=== PATIENT | female | born 1960 ===

== ENCOUNTER 2017-04-20 23:43 | Emergency (ER) | payer MEDICAID ==
[2017-04-20 23:57] VITALS: BMI 44.2
[2017-04-21 00:01] VITALS: BP 136/63; PULSE 70; RESP 16; TEMP 97.6; O2SAT 97
--- NOTE | 2017-04-21 01:30 | ED PDOC ---
Arrival/HPI - General Chief Complaint: Abnormal Skin Integrity Time Seen by Provider: 04/21/17 00:13 Historian: Patient - History of Present Illness Narrative History of Present Illness (Text): 04/21/17 02:01 56 year old female presents to ED with complaints of a rash present since yesterday and denies any exposure to new foods, medicines, or soaps/lotions. Notes rash is pruritic, erythematous, and present on the anterior aspect of the neck. (-) fever, facial swelling, tongue swelling, or difficulty breathing. Patient also notes a dry cough present for 2 months. (+) nasal congestion x2 days. (-) fever, chest pain, or SOB. PCP: Dr. Wolfe Time/Duration: 24 hours Past Medical History - Provider Review Nursing Documentation Reviewed: Yes - Travel History Have you recently traveled outside [place] w/in the past 3 mons?: No - Past History Past History: Non-Contributing Family/Social History - Physician Review Nursing Documentation Reviewed: Yes Family/Social History: No Known Family HX Allergies/Home Meds Allergies/Adverse Reactions: Allergies No Known Allergies Allergy (Verified 04/20/17 23:57) Review of Systems - Patients Enrolled in [employer] [X]: A conversation was conducted with the primary medical doctor. - Physician Review All systems were reviewed & negative as marked: Yes - Review of Systems Constitutional: absent: Fevers ENT: Sinus Congestion. absent: Other ((-) tongue swelling) Respiratory: Cough (dry). absent: SOB Cardiovascular: absent: Chest Pain Musculoskeletal: absent: Other ((-) facial swelling) Skin: Rash (prurity and erythematous rash on anterior neck). absent: Normal Physical Exam Vital Signs Reviewed: Yes Vital Signs Temp Pulse Resp BP Pulse Ox 04/20/17 23:57 97.6 F 70 16 136/63 97 Appearance: Positive for: Well-Appearing Pain Distress: None Mental Status: Positive for: Alert and Oriented X 3 - Systems Exam Head: Present: Atraumatic Ears: Present: Normal Mouth: Present: Moist Mucous Membranes Pharnyx: Present: Normal Neck: Present: Normal Range of Motion Respiratory/Chest: Present: Clear to Auscultation Cardiovascular: Present: Regular Rate and Rhythm Upper Extremity: Present: Normal Inspection Lower Extremity: Present: Normal Inspection Skin: Present: Warm, Rashes (erythematous lacy appearing rash on anterior neck) , Other (patient has vitiligo). No: Normal Color Psychiatric: Present: Alert, Oriented x 3 Medical Decision Making ED Course and Treatment: 04/21/17 00:37 Initial impression: rash, likely due to contact dermatitis presents with cough x2 months. r/o PNA. likely bronchitis v viral illness Initial plan: * CXR 04/21/17 01:27 CXR : NAD, as read by PA Chest x-ray results discussed the patient in great detail. Diagnosis of contact dermatitis and cough likely due to bronchitis or viral illness discussed with the patient. Instructed to follow up with primary care physician in 1-2 days without fail. Advised to take medication as prescribed. Return to the emergency room at any time for any new or worsening symptoms. Patient states she fully agrees with and understands discharge instructions. States that she agrees with the plan and disposition. Verbalized and repeated discharge instructions and plan. I have given the patient opportunity to ask any additional questions. Scribe Attestation: Documented by Alycia Neumann acting as a scribe for Callie Sauer PA-C. MD Scribe Attestation: All medical record entries made by the Scribe were at my direction and personally dictated by me. I have reviewed the chart and agree that the record accurately reflects my personal performance of the history, physical exam, medical decision making, and the department course for this patient. I have also personally directed, reviewed, and agree with the discharge instructions and disposition. - RAD Interpretation Radiology Orders: 04/21/17 00:37 CHEST TWO VIEWS (PA/LAT) [RAD] Stat - PA / DIRECTOR OF CHILD WELFARE SERVICES / Resident Statement MD/DO has reviewed & agrees with the documentation as recorded. Disposition/Present on Arrival - Present on Arrival Any Indicators Present on Arrival: No History of DVT/PE: No History of Uncontrolled Diabetes: No Urinary Catheter: No History of Decub. Ulcer: No - Disposition Have Diagnosis and Disposition been Completed?: Yes Diagnosis: Contact dermatitis, Cough Disposition: HOME/ ROUTINE Disposition Time: 01:00 Patient Plan: Discharge Condition: STABLE Discharge Instructions (ExitCare): Contact Dermatitis (ED), Viral Syndrome (ED) Print Language: [place] Additional Instructions: Thank you for letting us take care of you today. You were treated for contact dermatitis, cough likely viral illness. The emergency medical care you received today was directed at your acute symptoms. If you were prescribed any medication , please fill it and take as directed. It may take several days for your symptoms to resolve. Return to the Emergency Department if your symptoms worsen , do not improve, or if you have any other problems. Please contact your doctor in 2 days for re-evaluation and follow up. Bring any paperwork you were given at discharge with you along with any medications you are taking to your follow up visit. Our treatment cannot replace ongoing medical care by a primary care provider (PCP) outside of the emergency department. Thank you for allowing the [facility] team to be part of your care today. If you had an X-Ray : A Radiologist will review the ED reading if any change in treatment is needed we will contact you. Prescriptions: DiphenhydrAMINE [Benadryl] 25 mg PO TID #20 cap Guaifenesin 400 mg PO QID #20 tablet Hydrocortisone Michelle 0.2% Cr [Westcort] 1 applic TOP BID #1 tube Forms: [place] ([place]), [facility] ED School/Work Excuse
--- NOTE | 2017-04-21 09:39 | RAD ---
HISTORY: cough COMPARISON: No prior. TECHNIQUE: Chest PA and lateral FINDINGS: LUNGS: No active pulmonary disease. PLEURA: No significant pleural effusion identified. No pneumothorax apparent. CARDIOVASCULAR: Atherosclerotic aortic calcifications. Cardiomediastinal silhouette unchanged OSSEOUS STRUCTURES: Unchanged. VISUALIZED UPPER ABDOMEN: Normal. OTHER FINDINGS: None. IMPRESSION: No active disease.
== END 2017-04-21 01:55 | disposition home or self-care (01) ==
LOC: H.ER 23:43
DX: L25.9 Unspecified contact dermatitis, unspecified cause (principal); B34.9 Viral infection, unspecified

== ENCOUNTER 2017-05-28 22:26 | Emergency (ER) | payer MEDICAID ==
[2017-05-28 22:26] VITALS: BMI 44.2
[2017-05-28 22:57] VITALS: BP 145/87; PULSE 74; RESP 17; TEMP 97.5; O2SAT 96
[2017-05-28 23:32] LABS: SQUAMOUS EPITHIAL < 1 /hpf (0-5); URINE BACTERIA RARE (<OCC); URINE BILIRUBIN NEGATIVE (NEGATIVE); URINE BLOOD SMALL (NEGATIVE); URINE CLARITY CLOUDY (Clear); URINE COLOR YELLOW (YELLOW); URINE GLUCOSE (UA) NEG (Normal); URINE LEUKOCYTE ESTERASE LARGE Leu/uL (Negative); URINE NITRATE NEGATIVE (NEGATIVE); URINE PROTEIN >=500 mg/dL (NEGATIVE); URINE UROBILINOGEN 0.2-1.0 mg/dL (0.2-1.0)
--- NOTE | 2017-05-28 23:34 | ED PDOC ---
HPI: Female Pain Time Seen by Provider: 05/28/17 23:06 Chief Complaint (Nursing): Female Genitourinary History Per: Patient History/Exam Limitations: no limitations Current Symptoms Are (Timing): Still Present Additional Complaint(s): 57 yo F presents with continued dysuria. Patient states that she saw her pmd at the clinic regarding her symptoms, was Dx with a UTI and given Rx for bactrim, she took the last dose today, but continues to have dysuria. Denies any fever, chills, N/V, back pain, abdominal pain. Past Medical History Vital Signs: Last Vital Signs Temp 97.5 F L 05/28/17 22:54 Pulse 74 05/28/17 22:54 Resp 17 05/28/17 22:54 BP 145/87 05/28/17 22:54 Pulse Ox 96 05/28/17 22:54 - Medical History PMH: HTN, Hyperlipidemia - Family History Family History: States: No Known Family Hx - Home Medications Home Medications: Ambulatory Orders Medication Instructions Recorded DiphenhydrAMINE [Benadryl] 25 mg PO TID #20 cap 04/21/17 Guaifenesin 400 mg PO QID #20 tablet 04/21/17 Hydrocortisone Michelle 0.2% Cr 1 applic TOP BID #1 tube 04/21/17 [Westcort] Cefpodoxime [Vantin] 200 mg PO BID #20 tab 05/28/17 - Allergies Allergies/Adverse Reactions: Allergies Allergy/AdvReac Type Severity Reaction Status Date / Time No Known Allergies Allergy Verified 04/20/17 23:57 Review of Systems Constitutional: Negative for: Fever, Chills, Weakness, Malaise Cardiovascular: Negative for: Chest Pain, Palpitations Respiratory: Negative for: Cough, Shortness of Breath Gastrointestinal: Negative for: Nausea, Vomiting, Abdominal Pain Genitourinary Female: Positive for: Dysuria. Negative for: Frequency, Incontinence Musculoskeletal: Negative for: Neck Pain Skin: Negative for: Rash Physical Exam - Physical Exam Appears: Positive for: Well, Non-toxic, No Acute Distress Skin: Positive for: Normal Color, Warm, Dry Neck: Positive for: Normal, Painless ROM, Supple Cardiovascular/Chest: Positive for: Regular Rate, Rhythm. Negative for: JVD, Murmur Respiratory: Positive for: Normal Breath Sounds. Negative for: Decreased Breath Sounds, Rales, Rhonchi, Wheezing Gastrointestinal/Abdominal: Positive for: Normal Exam, Soft. Negative for: Tenderness, Distended, Guarding, Rebound Back: Positive for: Normal Inspection. Negative for: L CVA Tenderness, R CVA Tenderness Extremity: Positive for: Normal ROM. Negative for: Tenderness, Swelling - ECG O2 Sat by Pulse Oximetry: 96 Medical Decision Making Medical Decision Making: Plan : - UA - Urine cx UA shows +UTI, urine cx sent and pending. Diagnostic results d/w the patient. Dx of UTI d/w the patient. Medicated with rocephin 1 g IM. On re-evaluation, patient appears well, in no acute distress, abdomen remains soft with no CVA tenderness. Advised to follow up with the clinic in 1-2 days without fail. Advised to take medication as prescribed. Return to the emergency room at any time for any new or worsening symptoms. Patient states she fully agrees with and understands discharge instructions. States that she agrees with the plan and disposition. Verbalized and repeated discharge instructions and plan. I have given the patient opportunity to ask any additional questions. Disposition - Clinical Impression Clinical Impression: Urinary tract infection - Patient ED Disposition Is Patient to be Admitted: No Counseled Patient/Family Regarding: Studies Performed, Diagnosis, Need For Followup, Rx Given - Disposition Disposition: Routine/Home Disposition Time: 00:00 Condition: STABLE Additional Instructions: Thank you for letting us take care of you today. You were treated for UTI. The emergency medical care you received today was directed at your acute symptoms. If you were prescribed any medication, please fill it and take as directed. It may take several days for your symptoms to resolve. Return to the Emergency Department if your symptoms worsen, do not improve, or if you have any other problems. Please contact your doctor in 2 days for re-evaluation and follow up. Bring any paperwork you were given at discharge with you along with any medications you are taking to your follow up visit. Our treatment cannot replace ongoing medical care by a primary care provider (PCP) outside of the emergency department. [facility] you for allowing [facility] be [facility] your care today. If you had a urine culture: It will take several days for the results, if any change in treatment is needed we will contact you. Prescriptions: Cefpodoxime [Vantin] 200 mg PO BID #20 tab Instructions: Urinary Tract Infections in Adults Forms: [facility] ([place]) Print Language: [place] - PA / SHIFT ENGINEER / Resident Statement MD/DO has reviewed & agrees with the documentation as recorded.
[2017-05-28] MEDS ORDERED: cefTRIAXone (Rocephin) 1 gm Inj IM ONE (23:56)
== END 2017-05-29 00:41 | disposition home or self-care (01) ==
LOC: H.ER 22:26
DX: N39.0 Urinary tract infection, site not specified (principal)
CPT/HCPCS: 81003; 87086; 87181; 96372; 99283; J0696